=== PATIENT | male | born 2005 | race American Indian/Alaskan Native ===

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

== ENCOUNTER 2025-04-28 09:35 | Emergency (ER) | payer BC, MEDICAID, OTHER ==
[2025-04-28 09:47] VITALS: BP 125/73; PULSE 66
[2025-04-28] MEDS: Take Home: Cephalexin 500 MG Cap, 6 Cap Pack PO ONE (10:05)
== END 2025-04-28 10:10 | disposition home or self-care (01) ==
LOC: DL.ED 09:35
DX: T63.441A Toxic effect of venom of bees, accidental (unintentional), initial encounter (principal); Z79.899 Other long term (current) drug therapy; Z88.0 Allergy status to penicillin; Z88.8 Allergy status to other drugs, medicaments and biological substances; Z88.6 Allergy status to analgesic agent
CPT/HCPCS: 99282; 99283; A9270